=== PATIENT | male | born 1980 | race Caucasian/White ===

== ENCOUNTER 2017-04-20 18:45 | Emergency (ER) | payer MEDICAID, OTHER ==
[~2017-04-20] VITALS: Ht 182.9 cm; Wt 82.1 kg
[2017-04-20] MEDS ORDERED: FLUORESCEIN OPHTH 1 MG STRIP OS ONE (19:30)
[2017-04-20] MEDS ORDERED: TETRACAINE 0.5% OPHTH SOLN 4ML OS ONE (19:30)
[2017-04-20] MEDS ORDERED: POLYSOL OS (21:02)
[2017-04-20] MEDS ORDERED: BESI0.6S OP (21:02)
[2017-04-20 21:11] VITALS: BP 139/79
--- NOTE | 2017-04-22 08:08 | CR ---
DATE OF CONSULTATION: 04/20/2017 CHIEF COMPLAINT: Left eye pain. HISTORY OF PRESENT ILLNESS: A 37-year-old male with 2 days of left eye irritation and redness after he was reportedly grinding metal. The patient notes approximately 2 days afterwards, he developed left eye pain and increased tearing, as well as some mild redness in the left eye. There is some mild blurred vision in the left eye. PAST MEDICAL HISTORY: Denies. PAST OCULAR HISTORY: Denies. No prior ocular surgery. No prior ocular drops. ALLERGIES: None. No known drug allergies. REVIEW OF SYSTEMS: Are noncontributory. EXAMINATION: Visual acuity in the right eye is 20/25 uncorrected, 20/40 in the left eye. Pupils are equal, round, and reactive. No afferent pupillary defect (APD). Extraocular muscles are full and intact. Confrontation to visual field are full to count fingers both eyes (OU). Lids, lashes, and adnexa are normal OU. Conjunctiva and sclera of the right eye are normal. Conjunctiva and sclera in the left eye shows 2+ conjunctival injection without discharge. Cornea is normal in the right eye. There is approximately a 1.0 mm metallic foreign body in the paracentral cornea in the left eye with a mild rust ring. The anterior chamber depth is deep and quiet in both eyes. Lens is clear in the right eye. An undilated fundus examination with a 90 diopter lens revealed a cup-to-disc ratio of 0.3 in the left eye. ASSESSMENT AND PLAN: 1. Metallic foreign body of the left eye. 2. Mild rust ring. 3. Epithelial defect. PLAN: Removal of metallic foreign body in the left eye with a 30-gauge needle was performed with the slit lamp. Antibiotics were placed before and after. The patient will be started on polytrim four times a day to the left eye for 10 days and Besivance three times a day for 10 days. The patient was told to followup in the emergency room if there are any changes in symptoms within the next week. Otherwise, he is to followup in the office within 1-2 weeks. I again stressed the importance of protective eyewear during all activities, especially grinding metals; and the patient acknowledged this. DL
== END 2017-04-20 21:12 | disposition home or self-care (01) ==
LOC: M ED 18:45
DX: T15.02XA Foreign body in cornea, left eye, initial encounter (principal); Y92.89 Other specified places as the place of occurrence of the external cause; Y93.89 Activity, other specified; Y99.0 Civilian activity done for income or pay

== ENCOUNTER 2017-10-30 07:27 | Emergency (ER) | payer MEDICAID ==
[2017-10-30] MEDS: TETRACAINE 0.5% OPHTH SOLN 4ML OU (07:45)
[2017-10-30] MEDS: FLUORESCEIN OPHTH 1 MG STRIP OU (07:45)
== END 2017-10-30 08:28 | disposition home or self-care (01) ==
LOC: M ED 07:27
DX: H16.8 Other keratitis (principal); F17.200 Nicotine dependence, unspecified, uncomplicated
CPT/HCPCS: 99283

== ENCOUNTER 2018-06-11 12:40 | Emergency (ER) | payer SELFPAY, MEDICAID, OTHER ==
[2018-06-11] MEDS: valACYclovir HCL 500 MG TAB PO (13:30)
[2018-06-11] MEDS: methylPREDNISolone INJ 125 MG/2 ML VIAL (J2930) IM (13:30)
== END 2018-06-11 14:14 | disposition home or self-care (01) ==
LOC: M ED 12:40
DX: B02.9 Zoster without complications (principal); F17.210 Nicotine dependence, cigarettes, uncomplicated
CPT/HCPCS: J2930

== ENCOUNTER → 2024-08-26 | Outpatient (CLI) | payer MEDICAID ==
[~2024-08-26] MED LIST: BESI0.6S OP; ERYTOIN8 OU; HYDR-3715 PO; IBUP80TA PO; POLYSOL OS; PRED20TA PO; VALA1TAB5 PO
== END ==
LOC: M OUTALCOH 07:25
PROVIDERS: ATTEND Psychiatry & Neurology Psychiatry
DX: Z03.89 Encounter for observation for other suspected diseases and conditions ruled out (principal); F17.200 Nicotine dependence, unspecified, uncomplicated